=== PATIENT | male | born 1990 | race Caucasian/White ===

== ENCOUNTER 2021-10-06 19:30 | Emergency (ER) | payer BC ==
[2021-10-06 19:45] VITALS: RESP 19; TEMP 98.3
[2021-10-06] MEDS ORDERED: HYDROcodone/APAP 5-325MG 1 EACH TAB PO STA (19:51)
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
--- NOTE | 2021-10-06 20:11 | XR ---
EXAMINATION TYPE: XR knee complete LT DATE OF EXAM: 10/06/2021 COMPARISON: NONE HISTORY: Pain TECHNIQUE: 3 views FINDINGS: I see no fracture nor dislocation. Joint spaces are normal. No sign of knee joint effusion. IMPRESSION: Negative left knee exam. No fracture.
[2021-10-06] MEDS ORDERED: ACET/COD 300 MG/30 MG STARTER PACK 6 TAB BTL PO STA (20:28)
[2021-10-06 21:08] VITALS: BP 138/79; PULSE 78
== END 2021-10-06 21:12 | disposition home or self-care (01) ==
LOC: EC 19:30
DX: S89.92XA Unspecified injury of left lower leg, initial encounter (principal); F17.200 Nicotine dependence, unspecified, uncomplicated; V27.4XXA Motorcycle driver injured in collision with fixed or stationary object in traffic accident, initial encounter
CPT/HCPCS: 73562; 99283; L1830 ×2